=== PATIENT | male | born 1985 | race Caucasian/White ===

== ENCOUNTER → 2016-10-03 | Outpatient (CLI) | payer OTHER ==
--- NOTE | 2016-10-03 14:55 | DIAGNOSTIC IMAGING REPORT ---
LEFT WRIST 3 VIEWS HISTORY: LEFT WRIST PAIN COMPARISON: None. FINDINGS: There is no fracture or dislocation. Soft tissues are unremarkable. No radiopaque foreign bodies. IMPRESSION: No fractures. Electronically signed by: El Bucio M.D. 10/03/2016 2:54 PM Dictated Date/Time: 10/03/2016 2:53 PM
--- NOTE | 2016-10-03 15:29 | DIAGNOSTIC IMAGING REPORT ---
LEFT WRIST 2 VIEWS CLINICAL HISTORY: LEFT WRIST PAIN ADDITIONAL VIEW REQUESTED COMPARISON STUDY: Left wrist 10/03/2016. FINDINGS: Scaphoid view of the left wrist with a clenched view of the bilateral wrists were submitted. No fractures identified within the left wrist. The scapholunate interval is slightly more prominent on the left in comparison to the right but still measures within the range of normal limits. No fractures within the scaphoid.. IMPRESSION: No fractures within the left wrist. Electronically signed by: El Bucio M.D. 10/03/2016 3:28 PM Dictated Date/Time: 10/03/2016 3:25 PM
== END | disposition home or self-care (01) ==
LOC: C.RDSM 13:01
PROVIDERS: ATTEND Family Medicine
DX: M25.532 Pain in left wrist (principal)

== ENCOUNTER → 2016-10-06 | Outpatient (CLI) | payer OTHER ==
[~2016-10-06] MED LIST: GADAVIST IV PRN
--- NOTE | 2016-10-06 10:44 | DIAGNOSTIC IMAGING REPORT ---
LEFT WRIST ARTHROGRAPHIC INJECTION PRE-MRI CLINICAL HISTORY: Left wrist pain COMPARISON STUDY: Conventional radiographic study dated 10/03/2016 FLUOROSCOPY TIME: 42 seconds. A single fluoroscopic spot image was acquired.. FINDINGS: A timeout was performed. The patient was prepped and draped in sterile fashion. The skin was anesthetized with 1% lidocaine. Under fluoroscopic guidance, a 20-gauge spinal needle was introduced into the radius scaphoid joint. A mixture of water-soluble contrast and dilute gadolinium was instilled. A single fluoroscopic spot image confirms interpedicular location of the contrast. The patient was sent to the MRI suite for further imaging. IMPRESSION: Successful gadolinium left wrist arthrogram pre-MRI. Electronically signed by: Aakash Jacinto M.D. 10/06/2016 10:43 AM Dictated Date/Time: 10/06/2016 10:42 AM
--- NOTE | 2016-10-06 11:54 | DIAGNOSTIC IMAGING REPORT ---
POST ARTHROGRAM MRI THE LEFT WRIST CLINICAL HISTORY: Left wrist pain status post trauma COMPARISON STUDY: No previous studies for comparison. FINDINGS: Following a gadolinium arthrogram, an MRI was performed. Imaging was performed in the sagittal coronal and axial planes. The intrinsic proximal carpal row ligaments appear intact. Specifically there is no evidence of a scapholunate ligamentous disruption. There is a partial tear of the extensor carpi ulnaris, best visualized in image #12 of 18 on the axial images. There is an equivocal partial tear of the meniscal homologue. The remainder of the triangle fibrocartilage appears normal. There are no areas of marrow edema to indicate occult fracture or bone bruise. There is extensive contrast visualized dorsal to the capsule. A dorsal capsular injury cannot be excluded IMPRESSION: 1. Partial tear of the extensor carpi ulnaris 2. No evidence of scapholunate ligamentous disruption 3. No evidence of occult fracture 4. Equivocal partial tear of the meniscal homologue 5. Extensive contrast visualized dorsal to the capsule. A dorsal capsular injury cannot be excluded. Electronically signed by: Aakash Jacinto M.D. 10/06/2016 11:52 AM Dictated Date/Time: 10/06/2016 11:44 AM
== END | disposition home or self-care (01) ==
LOC: C.MRIBC 10:00
PROVIDERS: ATTEND Family Medicine
DX: M25.532 Pain in left wrist (principal)